=== PATIENT | male | born 1975 | race American Indian/Alaskan Native ===

== ENCOUNTER 2017-11-15 10:56 | Emergency (ER) | payer SELFPAY ==
[2017-11-15] MEDS ORDERED: DILAUDID IV ONE (11:57)
[2017-11-15] MEDS ORDERED: NACL 0.9% 1000 ML 1,000 ML IV ONE (11:57)
[2017-11-15] MEDS ORDERED: ZOFRAN IV ONE (11:57)
--- NOTE | 2017-11-15 11:57 | Emergency Department Report ---
ED General Adult HPI - General Chief complaint: Abdominal Pain Stated complaint: ABDOMINAL PAIN Time Seen by Provider: 11/15/17 11:49 Source: patient, RN notes reviewed, old records reviewed Mode of arrival: Ambulatory Limitations: No Limitations - History of Present Illness Initial comments: This is a 42-year-old male who is unknown to this provider previously. His past medical history includes diabetes, chronic right-sided scrotal/inguinal hernia. He presents to the ER today with acute on chronic right-sided scrotal hernia pain. He indicates that the skin feels harder than normal and he is not defecating as much as he typically defecates. He reports that he was supposed get surgery, hernia a few months ago with the [facility], but the surgery was delayed secondary to issues with hyperglycemia, and he indicates his insulin regimen hasn't changed. His pain is achy, crampy and sharp, increases with palpation, decreases with rest, it does not radiate anywhere. -: Gradual Location: pelvis, genitals Quality: aching Consistency: other Improves with: other Worsens with: other Associated Symptoms: denies: confusion, chest pain, cough, diaphoresis, fever/ chills, headaches, loss of appetite, malaise, nausea/vomiting, rash, seizure, shortness of breath, syncope, weakness - Related Data Previous Rx's Medication Instructions Recorded Last Taken Type Amoxicillin/K Clav Tab [Augmentin 1 tab PO BID #18 tablet 05/29/14 Unknown Rx 875MG] Atenolol [Tenormin] 25 mg PO DAILY #30 tablet 05/29/14 Unknown Rx Clindamycin [Clindamycin CAP] 300 mg PO Q6H #40 capsule 07/07/15 Unknown Rx metFORMIN [Glucophage] 500 mg PO QDAY #30 tab 07/07/15 Unknown Rx traMADol [Ultram 50 MG tab] 50 mg PO Q6HR PRN #20 tablet 07/07/15 Unknown Rx Allergies Allergy/AdvReac Type Severity Reaction Status Date / Time No Known Allergies Allergy Verified 11/15/17 11:06 ED Review of Systems ROS: Stated complaint: ABDOMINAL PAIN Other details as noted in HPI Constitutional: denies: fever Eyes: denies: eye discharge ENT: denies: epistaxis Respiratory: denies: cough Cardiovascular: denies: chest pain Gastrointestinal: abdominal pain, constipation Genitourinary: denies: dysuria, testicular pain Musculoskeletal: denies: back pain Skin: denies: lesions Neurological: denies: weakness Psychiatric: as per HPI ED Past Medical Hx - Past Medical History Hx Hypertension: Yes Hx Congestive Heart Failure: No Hx Diabetes: No Hx Asthma: No Hx COPD: No Additional medical history: cellulitis. OBESITY - Social History Smoking Status: Current Some Day Smoker Substance Use Type: None - Medications Home Medications: Home Medications Medication Instructions Recorded Confirmed Last Taken Type Amoxicillin/K Clav Tab [Augmentin 1 tab PO BID #18 tablet 05/29/14 Unknown Rx 875MG] Atenolol [Tenormin] 25 mg PO DAILY #30 tablet 05/29/14 Unknown Rx Clindamycin [Clindamycin CAP] 300 mg PO Q6H #40 capsule 07/07/15 Unknown Rx metFORMIN [Glucophage] 500 mg PO QDAY #30 tab 07/07/15 Unknown Rx traMADol [Ultram 50 MG tab] 50 mg PO Q6HR PRN #20 tablet 07/07/15 Unknown Rx ED Physical Exam - General Limitations: No Limitations General appearance: alert, in no apparent distress - Head Head exam: Present: atraumatic, normocephalic - Eye Eye exam: Present: normal appearance, EOMI. Absent: nystagmus - ENT ENT exam: Present: normal exam, normal orophraynx, mucous membranes moist, normal external ear exam - Neck Neck exam: Present: normal inspection, full ROM - Respiratory Respiratory exam: Present: normal lung sounds bilaterally. Absent: respiratory distress - Cardiovascular Cardiovascular Exam: Present: normal rhythm, tachycardia, normal heart sounds. Absent: bradycardia, irregular rhythm, systolic murmur, diastolic murmur, rubs, gallop - GI/Abdominal GI/Abdominal exam: Present: soft, hernia, other (there is a right-sided large scrotal hernia. It is nonreducible. During this examination, I am escorted by nurse Sherrie Quintana). Absent: distended, tenderness, guarding, rebound, rigid - Rectal Rectal exam: Present: deferred - exam: Present: scrotal swelling, other (patient has a large right-sided scrotal hernia. There is no redness, pus or streaking. The skin is firm. The hernia is not reducible.) - Extremities Exam Extremities exam: Present: normal inspection, full ROM, normal capillary refill , other (2+ pulses noted in the bilateral upper, lower extremities. Compartments soft. No long bony tenderness. The pelvis is stable.). Absent: tenderness, pedal edema, joint swelling, calf tenderness - Back Exam Back exam: Present: normal inspection, full ROM. Absent: tenderness, CVA tenderness (R), paraspinal tenderness, vertebral tenderness - Neurological Exam Neurological exam: Present: alert, oriented X3, CN II-XII intact, normal gait, other (Extraocular movements intact. Tongue midline. No facial droop. Facial sensation intact to light touch in the V1, V2, V3 distribution bilaterally. 5 and 5 strength in 4 extremities.. Sensation is intact to light touch in 4 extremities.). Absent: motor sensory deficit - Psychiatric Psychiatric exam: Present: anxious - Skin Skin exam: Present: warm, dry, intact, normal color. Absent: rash ED Course Vital Signs 11/15/17 11/15/17 11/15/17 11:06 11:42 11:45 Temperature 98.2 F Pulse Rate 110 H Respiratory 16 Rate Blood Pressure 154/94 147/89 O2 Sat by Pulse 95 95 93 Oximetry 11/15/17 11/15/17 11/15/17 11:53 12:00 12:01 Temperature Pulse Rate Respiratory 16 16 Rate Blood Pressure 147/89 O2 Sat by Pulse 93 96 Oximetry 11/15/17 12:31 Temperature Pulse Rate Respiratory Rate Blood Pressure 147/89 O2 Sat by Pulse 94 Oximetry - Reevaluation(s) Reevaluation #1: 11/15/17 14:34 Differential diagnosis, including without limited to: Strangulated hernia, incarcerated hernia, obstruction Assessment and plan: 42-year-old male with chronic hernia which he thinks is getting worse. He has a negative lactic acid negative white count. He is up and walking and asking to go. His pain was treated aggressively. A CT scan was performed. The interpretation is pending. Reevaluation #2: 11/15/17 14:49 CT scan shows no evidence of obstruction or strangulation. Patient's tachycardia has resolved. His pain is improved. He is instructed to follow up with outpatient general surgery for definitive correction. ED Medical Decision Making - Lab Data Result diagrams: 11/15/17 12:03 11/15/17 12:03 Vital Signs 11/15/17 11/15/17 11/15/17 11:06 11:42 11:45 Temperature 98.2 F Pulse Rate 110 H Respiratory 16 Rate Blood Pressure 154/94 147/89 O2 Sat by Pulse 95 95 93 Oximetry 11/15/17 11/15/17 11/15/17 11:53 12:00 12:01 Temperature Pulse Rate Respiratory 16 16 Rate Blood Pressure 147/89 O2 Sat by Pulse 93 96 Oximetry 11/15/17 12:31 Temperature Pulse Rate Respiratory Rate Blood Pressure 147/89 O2 Sat by Pulse 94 Oximetry Lab Results 11/15/17 11/15/17 11/15/17 Range/Units 12:03 12:03 12:03 WBC 8.0 (4.5-11.0) K/mm3 RBC 5.28 H (3.65-5.03) M/mm3 Hgb 14.4 (11.8-15.2) gm/dl Hct 43.2 (35.5-45.6) % MCV 82 L (84-94) fl MCH 27 L (28-32) pg MCHC 33 (32-34) % RDW 16.0 H (13.2-15.2) % Plt Count 167 (140-440) K/mm3 VBG pH (7.320-7.420) Sodium 136 L (137-145) mmol/L Potassium 3.9 (3.6-5.0) mmol/L Chloride 95.7 L (98-107) mmol/L Carbon Dioxide 26 (22-30) mmol/L Anion Gap 18 mmol/L BUN 8 L (9-20) mg/dL Creatinine 0.8 (0.8-1.5) mg/dL Estimated GFR > 60 ml/min BUN/Creatinine Ratio 10 % Glucose 270 H (75-100) mg/dL Lactic Acid 1.00 (0.7-2.0) mmol/L Calcium 8.7 (8.4-10.2) mg/dL 11/15/17 Range/Units 12:03 WBC (4.5-11.0) K/mm3 RBC (3.65-5.03) M/mm3 Hgb (11.8-15.2) gm/dl Hct (35.5-45.6) % MCV (84-94) fl MCH (28-32) pg MCHC (32-34) % RDW (13.2-15.2) % Plt Count (140-440) K/mm3 VBG pH 7.444 H (7.320-7.420) Sodium (137-145) mmol/L Potassium (3.6-5.0) mmol/L Chloride (98-107) mmol/L Carbon Dioxide (22-30) mmol/L Anion Gap mmol/L BUN (9-20) mg/dL Creatinine (0.8-1.5) mg/dL Estimated GFR ml/min BUN/Creatinine Ratio % Glucose (75-100) mg/dL Lactic Acid (0.7-2.0) mmol/L Calcium (8.4-10.2) mg/dL - Radiology Data Radiology results: pending Critical care attestation.: If time is entered above; I have spent that time in minutes in the direct care of this critically ill patient, excluding procedure time. ED Disposition Clinical Impression: Inguinal hernia Qualifiers: Obstruction and gangrene presence: without obstruction or gangrene Laterality: unilateral Recurrence: not specified as recurrent Qualified Code(s): K40.90 - Unilateral inguinal hernia, without obstruction or gangrene, not specified as recurrent Disposition: DC-01 TO HOME OR SELFCARE Is pt being admited?: No Does the pt Need Aspirin: No Condition: Stable Instructions: Inguinal Hernia (ED) Additional Instructions: Do not take metformin for the next 48 hours. Continue outpatient medications otherwise. Eat plenty of fruits, fibers, vegetables, and drink 6-8 cups of water per day. Follow up with a general surgeon within the next week to arrange outpatient elective correction. Return to the ER right away with new pain, worsened pain, likely pain, fevers, chills, lethargy, irritability, vomiting, change in mental status, confusion, inability to tolerate feeds. Referrals: PRIMARY MD PANCHITO [Primary Care Provider] - 3-5 Days TAWANNA TORRES MD [Staff Physician] - 3-5 Days LONI PERDOMO DO [Staff Physician] - 3-5 Days
[2017-11-15 12:17] LABS: Hematocrit 43.2 % (35.5-45.6); Hemoglobin 14.4 gm/dl (11.8-15.2); Mean Corpuscular HGB Conc 33 % (32-34); Mean Corpuscular Hemoglobin 27 pg (28-32); Mean Corpuscular Volume 82 fl (84-94); Platelet Count 167 K/mm3 (140-440); Red Blood Count 5.28 M/mm3 (3.65-5.03)
[2017-11-15 12:36] LABS: BUN/Creatinine Ratio 10; Blood Urea Nitrogen 8 mg/dL (9-20); Calcium 8.7 mg/dL (8.4-10.2); Hemolysis Index 1
--- NOTE | 2017-11-15 14:33 | Cat Scan Report ---
CT ABDOMEN PELVIS WITH CONTRAST: HISTORY: abdominal pain, hernia. COMPARISON: none. TECHNIQUE: Helical CT in 1.25mm intervals following IV contrast. Sagittal and coronal reconstructions. FINDINGS: Lung bases: Normal. Liver: Normal. Biliary system: Normal. Pancreas: Normal. Spleen: Normal. Kidneys/ureters/bladder: Normal. Adrenal glands: Normal. Aorta: Normal. Intestines: A moderate to large right inguinal hernia is identified containing a few distal small bowel loops and a portion of the sigmoid colon. The neck of the hernia measures approximately 4.5 cm. The entire hernia sac is not included in this exam but there is no obvious GI obstruction or ischemia on the given images. The remaining bowel loops are unremarkable. Appendix: Not confidently identified. Pelvic viscera: Normal. Ascites: None. Adenopathy: None. Musculoskeletal: Normal. IMPRESSION: Right inguinal hernia as described.
[2017-11-15 15:09] VITALS: BP 162/104
== END 2017-11-15 15:26 | disposition home or self-care (01) ==
LOC: ED 10:56
DX: K40.90 Unilateral inguinal hernia, without obstruction or gangrene, not specified as recurrent (principal); I10 Essential (primary) hypertension; F17.200 Nicotine dependence, unspecified, uncomplicated; G89.29 Other chronic pain; E11.9 Type 2 diabetes mellitus without complications
CPT/HCPCS: 36415; 74177; 80048; 82140; 82805; 85027; 96374; 96375; 99284; J1170; J2405; J7030; Q9967; 96361

== ENCOUNTER 2021-09-17 09:57 | Emergency (ER) | payer OTHER | END 2021-09-17 13:20 | LOC: ED 09:57 | DX: M79.606 Pain in leg, unspecified (principal); Z53.21 Procedure and treatment not carried out due to patient leaving prior to being seen by health care provider ==